=== PATIENT | female | born 1955 | race Caucasian/White ===

== ENCOUNTER 2021-05-23 07:42 | Day surgery (SDC) | payer MEDICARE ==
[~2021-05-23] VITALS: Ht 160 cm; Wt 45.4 kg
[~2021-05-23 07:42] MED LIST: MECLIZINE25 MG PO; NEXIUM40 MG PO
[2021-05-23] MEDS ORDERED: PERCOCET 5/325M1 TAB PO ×2 (10:05→12:36)
[2021-05-23 11:28] VITALS: BP 131/75
== END 2021-05-23 11:50 | disposition home or self-care (01) ==
LOC: ORM 07:42
PROVIDERS: ATTEND Surgery
PROC: 0FT44ZZ Resection of Gallbladder, Percutaneous Endoscopic Approach (ICD-10-PCS; principal; 2021-05-23)
DX: K80.10 Calculus of gallbladder with chronic cholecystitis without obstruction (principal); K21.9 Gastro-esophageal reflux disease without esophagitis; E78.5 Hyperlipidemia, unspecified
CPT/HCPCS: J1610; J2710; Q9967

== ENCOUNTER → 2021-10-17 | Day surgery (SDC) | payer MEDICARE ==
[~2021-10-17] VITALS: Ht 160 cm; Wt 45.4 kg
[~2021-10-17] MED LIST changes: +OMEPRAZOLE20 MG PO; +PERCOCET 5/325M1 TAB PO
[2021-10-17 10:06] VITALS: BP 132/83
== END | disposition home or self-care (01) ==
LOC: ORM 08:27
PROVIDERS: ATTEND Surgery
PROC: 0DB48ZX Excision of Esophagogastric Junction, Via Natural or Artificial Opening Endoscopic, Diagnostic (ICD-10-PCS; principal; 2021-10-17)
PROC: 0DB68ZX Excision of Stomach, Via Natural or Artificial Opening Endoscopic, Diagnostic (ICD-10-PCS; 2021-10-17)
DX: K31.7 Polyp of stomach and duodenum (principal); K44.9 Diaphragmatic hernia without obstruction or gangrene; Q39.8 Other congenital malformations of esophagus; Z90.49 Acquired absence of other specified parts of digestive tract